=== PATIENT | female | born 1985 | race Caucasian/White ===

== ENCOUNTER 2016-12-25 16:55 | Inpatient (IN) | payer SELFPAY ==
[~2016-12-25] VITALS: Ht 170.2 cm; Wt 101.3 kg
[~2016-12-25 16:55] MED LIST: IBUP800T PO; OXYC-302 PO; PRENATAL VITAMIN PO; PROBIOTIC PO; SENN-1 PO
[2016-12-25] MEDS ORDERED: FENTANYL PF 100 MCG/2ML IV PRN (18:00)
[2016-12-25] MEDS: D5%-LACTATED RINGERS 1,000 ML IV SCH (18:00)
[2016-12-25] MEDS ORDERED: FENTANYL PF 100 MCG/2ML IVPush PRN (18:00)
[2016-12-25] MEDS ORDERED: ONDANSETRON 2MG/ML, 2ML IVPush PRN (18:00)
[2016-12-25] MEDS ORDERED: TERBUTALINE 1 MG/ML, 1ML IVPush PRN (18:00)
[2016-12-25] MEDS: LACTATED RINGERS 1,000 ML IV SCH ×2 (18:00→19:46)
[2016-12-25] MEDS ORDERED: OXYTOCIN 30U/ 0.9% NaCL 500ML 500 ML IV ONE (18:00)
[2016-12-25] MEDS ORDERED: OXYTOCIN 30U/ 0.9% NaCL 500ML 500 ML ONE (19:05)
[2016-12-25] MEDS ORDERED: MISOPROSTOL 200 MCG TABLET ONE (19:05)
[2016-12-25] MEDS ORDERED: LIDOCAINE 1%, 20ML ONE (19:05)
[2016-12-25] MEDS ORDERED: FENTANYL/BUPIV./NS/PF 250 ML EPIDCONT SCH (19:46)
[2016-12-25] MEDS ORDERED: BUPIVACAINE/PF 0.25% ONE (19:50)
[2016-12-25] MEDS ORDERED: FENTANYL/BUPIV./NS/PF 250 ML EPIDCONT ONE (19:50)
[2016-12-25] MEDS ORDERED: NALOXONE 0.4 MG/ML, 1ML IVPush PRN (20:00)
[2016-12-25] MEDS ORDERED: LACTATED RINGERS 1,000 ML IVBOLUS PRN (20:00)
[2016-12-25] MEDS ORDERED: EPHEDRINE 50 MG/ML, 1ML IVPush PRN (20:00)
[2016-12-26] MEDS: D5%-LACTATED RINGERS 1,000 ML IV SCH (02:00)
[2016-12-26] MEDS: LACTATED RINGERS 1,000 ML IV SCH ×3 (02:00→11:46)
[2016-12-26] MEDS ORDERED: OXYTOCIN 30U/ 0.9% NaCL 500ML 500 ML IV SCH (05:10)
[2016-12-26] MEDS ORDERED: OXYTOCIN 30U/ 0.9% NaCL 500ML 500 ML ONE (05:25)
[2016-12-26] MEDS ORDERED: ONDANSETRON 2MG/ML, 2ML IV PRN (05:30)
[2016-12-26] MEDS ORDERED: CALCIUM CARBONATE 500 MG TAB.CHEW PO PRN (05:30)
[2016-12-26] MEDS ORDERED: MISOPROSTOL 200 MCG TABLET PR PRN (05:30)
[2016-12-26] MEDS ORDERED: CARBOPROST TROMETHAMINE 250 MCG/ML, 1ML IM PRN (05:30)
[2016-12-26] MEDS ORDERED: ACETAMINOPHEN 325 MG TABLET PO PRN (05:30)
[2016-12-26] MEDS ORDERED: HYDROcodone/APAP 5/325 TABLET PO PRN (05:30)
[2016-12-26] MEDS ORDERED: METHYLERGONOVINE 0.2 MG/ML IM PRN (05:30)
[2016-12-26 09:00] VITALS: BP 113/71
[2016-12-26] MEDS: PRENATAL VIT/IRON/FA 1 EACH TABLET PO SCH (09:00)
[2016-12-26 12:00] VITALS: BP 115/72
[2016-12-26 16:05] VITALS: BP 117/74
[2016-12-26] MEDS: DOCUSATE 100 MG CAPSULE PO PRN (19:57)
[2016-12-26] MEDS: IBUPROFEN 600 MG TABLET PO PRN (19:57)
[2016-12-26] MEDS: HYDROcodone/APAP 5/325 TABLET PO PRN (19:57)
[2016-12-26 20:00] VITALS: BP 127/75
[2016-12-27 02:40] VITALS: BP 132/76
[2016-12-27 07:30] VITALS: BP 106/66
[2016-12-27] MEDS: HYDROcodone/APAP 5/325 TABLET PO PRN (08:05)
[2016-12-27] MEDS: DOCUSATE 100 MG CAPSULE PO PRN (08:05)
[2016-12-27] MEDS: IBUPROFEN 600 MG TABLET PO PRN (08:05)
[2016-12-27] MEDS ORDERED: HYDR-3240 PO (08:33)
[2016-12-27] MEDS ORDERED: IBUP-1222 PO (08:34)
[2016-12-27] MEDS: PRENATAL VIT/IRON/FA 1 EACH TABLET PO SCH (09:00)
== END 2016-12-27 11:17 | disposition home or self-care (01) | DRG 775 ==
LOC: LDOP 16:55 → LDIP 17:41 → 2NW 12-26 08:46
PROVIDERS: ADMIT Obstetrics & Gynecology; ATTEND Obstetrics & Gynecology
PROC: 10E0XZZ Delivery of Products of Conception, External Approach (ICD-10-PCS; principal; 2016-12-26)
PROC: 0HQ9XZZ Repair Perineum Skin, External Approach (ICD-10-PCS; 2016-12-26)
PROC: 3E0R3CZ (ICD-10-PCS; 2016-12-26)
PROC: 00HU33Z Insertion of Infusion Device into Spinal Canal, Percutaneous Approach (ICD-10-PCS; 2016-12-26)
DX: O69.89X0 Labor and delivery complicated by other cord complications, not applicable or unspecified (principal); Z37.0 Single live birth; Z3A.37 37 weeks gestation of pregnancy; O70.0 First degree perineal laceration during delivery
CPT/HCPCS: 36415; 85025; 86850; 86900; 89060; J2590; J3010; Q0114